=== PATIENT | male | born 1930 | race Caucasian/White ===

== ENCOUNTER 2020-07-27 15:58 | Inpatient (IN) | payer MEDICARE ==
[~2020-07-27 15:58] MED LIST: Iopamidol-370 76% 500 ML 1 ML ONE
[2020-07-27] MEDS ORDERED: Morphine 4 MG/ML VIAL ONE (18:03)
[2020-07-27] MEDS ORDERED: traMADol HCl 50 MG TAB PO PRN (18:26)
[2020-07-27] MEDS ORDERED: Ondansetron PF 4 MG/2 ML Vial IVP PRN (18:28)
[2020-07-27] MEDS ORDERED: Dextrose 50% Abboject 50 ML SYRINGE SLOW IVP PRN (18:28)
[2020-07-27] MEDS ORDERED: Insulin Regular 300 UNITS/3 ML VIAL SC PRN (18:28)
[2020-07-27] MEDS ORDERED: HumaLOG 300 UNITS/3 ML VIAL SC PRN (18:28)
[2020-07-27] MEDS ORDERED: Dextrose 5% in Water 1,000 ML IV PRN (18:28)
[2020-07-27] MEDS ORDERED: Ondansetron ODT 4 MG TAB PO PRN (18:28)
[2020-07-27] MEDS ORDERED: Sodium Chloride 0.9% 1,000 ML IV SCH (18:30)
[2020-07-27] MEDS ORDERED: Albuterol 200 PUFF (6.7GM INHALER) INH PRN (18:33)
[2020-07-27 19:21] LABS: #Eosinphils 0.1 thou/uL (0.0-0.7); #Lymphocytes 0.6 thou/uL (1.20-3.40); #Monocytes 0.7 thou/uL (0.11-0.59); #Neutrophils 14.6 thou/uL (1.40-6.50); %Basophils 0.1 % (0.0-1.0); %Eosinophils 0.4 % (0.0-10.0); %Lymphocytes 3.5 % (21.0-51.0); %Monocytes 4.4 % (0.0-10.0); %Neutrophils 91.5 % (42.0-75.0); Hemoglobin 14.6 g/dL (14.0-18.0); Mean Corpuscular HGB CONC 32.4 g/dL (32.0-36.0); Mean Corpuscular Hemoglobin 30.7 pg (27.0-31.0); Mean Corpuscular Volume 94.8 fL (78.0-98.0); Mean Platelet Volume 7.8 fL (7.4-10.4); Platelet Count 187 thou/uL (130-400); RBC Distribution Width 13.2 % (11.5-14.5); Red Blood Cell (RBC) Count 4.74 mill/uL (4.70-6.10)
[2020-07-27 20:02] LABS: Troponin I 0.359 ng/mL (< 0.028)
[2020-07-27 20:09] LABS: Albumin 3.4 g/dL (3.4-4.8)
[2020-07-27 20:10] LABS: Chloride 110 mmol/L (98-107); Potassium 4.8 mmol/L (3.5-5.1); Sodium 138 mmol/L (136-145)
[2020-07-27 20:12] LABS: Glucose 204 mg/dL (83-110); Protein, Total 6.1 g/dL (5.8-8.1)
[2020-07-27 20:13] LABS: Anion Gap 14 mmol/L (10-20); Bilirubin, Total 0.6 mg/dL (0.2-1.2); Carbon Dioxide 19 mmol/L (23-31)
[2020-07-27 20:14] LABS: Alkaline Phosphatase 118 U/L (40-110)
[2020-07-27] MEDS ORDERED: Aspirin Chewable 81 MG TAB ONE (20:14)
[2020-07-27] MEDS ORDERED: Aspirin 81 mg Enteric Coated Tablet ONE (20:14)
[2020-07-27 20:15] LABS: Calc. Creatinine Clearance 0 mL/min (70-130); Phosphorus 2.5 mg/dL (2.3-4.7)
[2020-07-27 20:16] LABS: BUN (Urea Nitrogen) 22 mg/dL (8.4-25.7)
[2020-07-27 20:17] LABS: AST (SGOT) 22 U/L (5-34); Bilirubin, Direct 0.3 mg/dL (0.1-0.3); Magnesium 1.7 mg/dL (1.6-2.6)
[2020-07-27 20:18] LABS: ALT (SGPT) 18 U/L (8-55)
[2020-07-27] MEDS ORDERED: Amlodipine 5 MG TAB PO SCH (20:45)
[2020-07-27] MEDS ORDERED: Heparin 25,000 units/D5W 500 ML IV SCH (20:45)
[2020-07-27] MEDS ORDERED: Ondansetron PF 4 MG/2 ML Vial ONE (20:58)
[2020-07-27] MEDS ORDERED: Famotidine 20 MG TAB PO SCH (21:00)
[2020-07-27] MEDS ORDERED: FLU VACC QS2020-21(65YR UP)/PF 240 MCG/0.7 ML SYRINGE IM ONE (21:00)
[2020-07-27] MEDS ORDERED: MEROPENEM 1 GM/50 ML 1 GM in Premix Bag 1 BAG IVPB SCH (22:00)
[2020-07-27 22:13] LABS: INR-International Normal Ratio 1.1; PTT 33.9 sec (22.9-36.1); Prothrombin Time 14.7 sec (12.0-14.7)
[2020-07-27] MEDS: Sodium Chloride 0.9% 1,000 ML IV SCH (23:41)
[2020-07-27] MEDS: Gabapentin 400 MG CAP PO SCH (23:42)
[2020-07-27] MEDS: HYDROcodone/Acetaminophen 10/325 mg Tablet PO PRN (23:44)
[2020-07-27] MEDS: Heparin 10,000 UNITS/ 10 ML VIAL SLOW IVP SCH (23:53)
[2020-07-28] MEDS: MEROPENEM 1 GM/50 ML 1 GM in Premix Bag 1 BAG IVPB SCH ×2 (01:14→08:57)
[2020-07-28 04:35] LABS: #Lymphocytes 0.8 thou/uL (1.20-3.40); #Neutrophils 12.1 thou/uL (1.40-6.50); %Basophils 0.1 % (0.0-1.0); %Eosinophils 0.1 % (0.0-10.0); %Lymphocytes 5.8 % (21.0-51.0); %Monocytes 6.9 % (0.0-10.0); Hemoglobin 13.5 g/dL (14.0-18.0); Mean Corpuscular HGB CONC 30.9 g/dL (32.0-36.0); Mean Corpuscular Hemoglobin 29.5 pg (27.0-31.0); Mean Corpuscular Volume 95.3 fL (78.0-98.0); Mean Platelet Volume 7.8 fL (7.4-10.4); Platelet Count 195 thou/uL (130-400); RBC Distribution Width 13.4 % (11.5-14.5); Red Blood Cell (RBC) Count 4.58 mill/uL (4.70-6.10)
[2020-07-28 04:40] LABS: INR-International Normal Ratio 1.3; PTT 54.1 sec (22.9-36.1); Prothrombin Time 16.1 sec (12.0-14.7)
[2020-07-28 05:03] LABS: Troponin I 0.513 ng/mL (< 0.028)
[2020-07-28 05:34] LABS: SARS-CoV-2 PCR by NAA Not Detected (NotDetected)
[2020-07-28 06:36] LABS: Bacteria/HPF None Seen HPF (None Seen); Bilirubin Negative (Negative); Blood, Urine 3+ (Negative); Clarity Turbid (Clear); Glucose, Urine (Dipstick) 100 mg/dL (Negative); Ketone, Urine 40 mg/dL (Negative); Leukocyte 25 Leu/uL (Negative); Nitrite Negative (Negative); Protein, Urine (Dipstick) 50 mg/dL (Neg-Trace); RBC/HPF Greater than 50 HPF (0-3); Squamous Epithelial None Seen HPF (0-3); Urobilinogen Normal mg/dL (Less than 2); pH, Urine 5.5 (5.0-9.0)
[2020-07-28 06:55] LABS: Specific Gravity, Urine 1.049 (1.002-1.036)
[2020-07-28 06:56] LABS: Urine Culture Reflex Yes Yes
[2020-07-28] MEDS: Sodium Chloride 0.9% 1,000 ML IV SCH ×3 (06:59→20:43)
[2020-07-28] MEDS: Mometasone 200 MCG/Formoterol 5 MCG 120 PUFF INHALER INH SCH ×2 (07:03→18:35)
[2020-07-28] MEDS: Heparin 10,000 UNITS/ 10 ML VIAL SLOW IVP SCH (07:27)
[2020-07-28] MEDS: Gabapentin 400 MG CAP PO SCH ×3 (08:54→20:42)
[2020-07-28] MEDS: Tamsulosin HCl 0.4 MG CAP PO SCH (08:55)
[2020-07-28] MEDS: Amlodipine 5 MG TAB PO SCH (08:55)
[2020-07-28] MEDS: Atorvastatin Calcium 10 MG TAB PO SCH (08:56)
[2020-07-28] MEDS: HYDROcodone/Acetaminophen 10/325 mg Tablet PO PRN (12:09)
[2020-07-28 14:20] LABS: PTT 229.4 sec (22.9-36.1)
[2020-07-28 16:49] LABS: PTT 151.6 sec (22.9-36.1)
[2020-07-28 17:09] LABS: Critical Call Chem Troponin I RESULT DECREASING
[2020-07-28 17:27] LABS: CKMB 3.9 ng/mL (0-6.6)
[2020-07-28] MEDS ORDERED: Insulin Regular 300 UNITS/3 ML VIAL SC PRN (18:42)
[2020-07-28] MEDS ORDERED: Dextrose 50% Abboject 50 ML SYRINGE SLOW IVP PRN (18:42)
[2020-07-28] MEDS ORDERED: Dextrose 5% in Water 1,000 ML IV PRN (18:42)
[2020-07-28 19:14] LABS: INR-International Normal Ratio 1.3; Prothrombin Time 16.3 sec (12.0-14.7)
[2020-07-28] MEDS ORDERED: Clindamycin/D5W 900 MG in Premix Bag 1 BAG IVPB SCH (19:30)
[2020-07-28] MEDS ORDERED: Famotidine 20 MG TAB PO SCH (21:00)
[2020-07-29] MEDS: HYDROcodone/Acetaminophen 10/325 mg Tablet PO PRN (04:25)
[2020-07-29 04:59] LABS: #Eosinphils 0.3 thou/uL (0.0-0.7); #Lymphocytes 0.8 thou/uL (1.20-3.40); #Neutrophils 7.2 thou/uL (1.40-6.50); %Basophils 0.3 % (0.0-1.0); %Eosinophils 3.7 % (0.0-10.0); %Lymphocytes 8.8 % (21.0-51.0); %Monocytes 10.3 % (0.0-10.0); %Neutrophils 76.9 % (42.0-75.0); Hemoglobin 12.2 g/dL (14.0-18.0); Mean Corpuscular HGB CONC 33.1 g/dL (32.0-36.0); Mean Corpuscular Hemoglobin 31.7 pg (27.0-31.0); Mean Corpuscular Volume 95.8 fL (78.0-98.0); Mean Platelet Volume 7.8 fL (7.4-10.4); Platelet Count 143 thou/uL (130-400); RBC Distribution Width 13.4 % (11.5-14.5); Red Blood Cell (RBC) Count 3.84 mill/uL (4.70-6.10); White Blood Cell (WBC) Count 9.4 thou/uL (4.8-10.8)
[2020-07-29 05:16] LABS: Anion Gap 13 mmol/L (10-20); BUN (Urea Nitrogen) 41 mg/dL (8.4-25.7); Calc. Creatinine Clearance 34 mL/min (70-130); Calcium 7.8 mg/dL (7.8-10.44); Carbon Dioxide 18 mmol/L (23-31); Chloride 110 mmol/L (98-107); Glucose 382 mg/dL (83-110); Magnesium 1.9 mg/dL (1.6-2.6); Phosphorus 2.7 mg/dL (2.3-4.7); Potassium 4.9 mmol/L (3.5-5.1); Sodium 136 mmol/L (136-145)
[2020-07-29] MEDS ORDERED: Insulin Regular 300 UNITS/3 ML VIAL SC SCH ×3 (05:45→19:45)
[2020-07-29] MEDS ORDERED: Lactated Ringer's 500 ML IV SCH ×3 (06:45→17:15)
[2020-07-29 06:59] LABS: INR-International Normal Ratio 1.3; Prothrombin Time 16.2 sec (12.0-14.7)
[2020-07-29 07:00] LABS: PTT 37.7 sec (22.9-36.1)
[2020-07-29 07:06] LABS: Glucose 351 mg/dL (83-110)
[2020-07-29] MEDS: Mometasone 200 MCG/Formoterol 5 MCG 120 PUFF INHALER INH SCH ×2 (07:13→18:33)
[2020-07-29] MEDS ORDERED: Fentanyl 100 MCG/2 ML VIAL ONE ×3 (07:29→13:22)
[2020-07-29] MEDS ORDERED: Tranexamic Acid 1,000 MG in Sodium Chloride 0.9% 250 ML 250 ML IVPB ONE (07:30)
[2020-07-29] MEDS ORDERED: Sodium Chloride 0.9% 100 ML ONE (07:49)
[2020-07-29] MEDS ORDERED: Sodium Chloride 0.9% 10 ML ONE (07:49)
[2020-07-29] MEDS ORDERED: Tranexamic Acid 1,000 MG/10 ML VIAL ONE ×2 (07:49→13:14)
[2020-07-29] MEDS ORDERED: Levofloxacin 500 mg/D5W 100 ml Premix Bag ONE (07:49)
[2020-07-29] MEDS ORDERED: Clindamycin/D5W 900 mg/50 ml Premix Bag ONE (07:49)
[2020-07-29] MEDS ORDERED: Albumin 5% 500 ML ONE (08:14)
[2020-07-29] MEDS ORDERED: Phenylephrine 10 MG/ML VIAL ONE (08:14)
[2020-07-29] MEDS ORDERED: methylPREDNISolone Sod Succ/PF 125 MG/2 ML VIAL IVP SCH (08:30)
[2020-07-29] MEDS ORDERED: methylPREDNISolone Sod Succ 40 MG VIAL IVP SCH (08:45)
[2020-07-29] MEDS ORDERED: Clindamycin/D5W 900 MG in Premix Bag 1 BAG IVPB SCH (09:00)
[2020-07-29 09:50] LABS: Glucose 202 mg/dL (83-110)
[2020-07-29] MEDS ORDERED: PROPOFOL 200 MG/20 ML VIAL ONE (10:48)
[2020-07-29] MEDS ORDERED: Lidocaine 1% PF 5 ML VIAL ONE (10:48)
[2020-07-29] MEDS ORDERED: Rocuronium Bromide 10 MG/ML (10ML VIAL) ONE (10:48)
[2020-07-29] MEDS ORDERED: PHENYLEPHRINE-NS 100 MCG/ML 10 ML SYRINGE ONE (10:48)
[2020-07-29] MEDS ORDERED: Dexamethasone 20 MG/5 ML VIAL ONE (10:48)
[2020-07-29] MEDS ORDERED: ePHEDrine Sulfate 50 MG/10 ML VIAL ONE (10:48)
[2020-07-29] MEDS ORDERED: SUGAMMADEX SODIUM 200 MG/2 ML VIAL ONE (12:14)
[2020-07-29] MEDS ORDERED: Ondansetron HCl/PF 4 MG/2 ML Vial IVP PRN (12:57)
[2020-07-29] MEDS ORDERED: Promethazine HCl 25 MG/ML VIAL SLOW IVP PRN (12:57)
[2020-07-29] MEDS ORDERED: Promethazine HCl 25 MG/ML VIAL IM PRN (12:57)
[2020-07-29 13:34] LABS: Glucose 200 mg/dL (83-110)
[2020-07-29] MEDS: methylPREDNISolone Sod Succ 40 MG VIAL IVP SCH ×2 (13:49→18:07)
[2020-07-29] MEDS: Gabapentin 400 MG CAP PO SCH ×3 (15:14→20:35)
[2020-07-29] MEDS: Tamsulosin HCl 0.4 MG CAP PO SCH (15:14)
[2020-07-29] MEDS: Atorvastatin Calcium 10 MG TAB PO SCH (15:14)
[2020-07-29] MEDS: Amlodipine 5 MG TAB PO SCH (15:15)
[2020-07-29] MEDS: Sodium Chloride 0.9% 1,000 ML IV SCH (15:47)
[2020-07-29] MEDS: Clindamycin/D5W 900 MG in Premix Bag 1 BAG IVPB SCH (15:47)
[2020-07-29] MEDS: Insulin Regular 300 UNITS/3 ML VIAL SC PRN ×2 (16:05→20:36)
[2020-07-29] MEDS ORDERED: Lactated Ringer's 1,000 ML IV SCH ×2 (17:30→18:16)
[2020-07-29 17:43] LABS: Actual Bicarbonate (HCO3a) 19.5 mEq/L (22-28); Base Excess (BEa) -6.2 mEq/L (-2.0 to +3.0); CO2 Tension 39.4 mmHg (35.0-45.0); Calcium, Ionized (arterial) 1.12 mmol/L (1.12-1.30); Carboxyhemoglobin (COHb) 0.5 gm% (0.0-3.0); Potassium - ABG Lab 5.04 mmol/L (3.70-5.30); pH, Arterial 7.31 (7.35-7.45)
[2020-07-29 17:44] LABS: O2 Tension (PaO2), arterial 55.3 mmHg (> 60.0); Puncture Site RRA
[2020-07-29 17:47] LABS: Glucose 260 mg/dL (83-110)
[2020-07-29] MEDS ORDERED: Furosemide 20 MG/2 ML VIAL SLOW IVP SCH (18:15)
[2020-07-29] MEDS ORDERED: Sodium Bicarb 50 MEQ/50 ML Abboject 8.4% SYRINGE IVP SCH (18:15)
[2020-07-29] MEDS ORDERED: Insulin Regular 300 UNITS/3 ML VIAL IVP SCH ×3 (18:30→19:30)
[2020-07-29] MEDS: Lactated Ringer's 1,000 ML IV SCH ×2 (19:40)
[2020-07-29] MEDS ORDERED: Lantus 1000 UNITS/10 ML VIAL SC STA (20:56)
[2020-07-29] MEDS ORDERED: Lantus 1000 UNITS/10 ML VIAL SC SCH (21:00)
[2020-07-30] MEDS: Clindamycin/D5W 900 MG in Premix Bag 1 BAG IVPB SCH (00:09)
[2020-07-30] MEDS: methylPREDNISolone Sod Succ 40 MG VIAL IVP SCH (00:10)
[2020-07-30] MEDS: Insulin Regular 300 UNITS/3 ML VIAL SC PRN ×4 (00:11→17:27)
[2020-07-30 03:43] LABS: #Lymphocytes 0.5 thou/uL (1.20-3.40); #Monocytes 0.5 thou/uL (0.11-0.59); %Basophils 0.1 % (0.0-1.0); %Eosinophils 0.1 % (0.0-10.0); %Lymphocytes 4.8 % (21.0-51.0); %Monocytes 5.4 % (0.0-10.0); %Neutrophils 89.7 % (42.0-75.0); Hemoglobin 10.4 g/dL (14.0-18.0); Mean Corpuscular HGB CONC 32.6 g/dL (32.0-36.0); Mean Corpuscular Hemoglobin 30.8 pg (27.0-31.0); Mean Corpuscular Volume 94.5 fL (78.0-98.0); Mean Platelet Volume 7.7 fL (7.4-10.4); Platelet Count 122 thou/uL (130-400); RBC Distribution Width 13.3 % (11.5-14.5); Red Blood Cell (RBC) Count 3.38 mill/uL (4.70-6.10); White Blood Cell (WBC) Count 10.1 thou/uL (4.8-10.8)
[2020-07-30 03:53] LABS: Phosphorus 2.3 mg/dL (2.3-4.7)
[2020-07-30 04:05] LABS: Anion Gap 12 mmol/L (10-20); BUN (Urea Nitrogen) 38 mg/dL (8.4-25.7); Calc. Creatinine Clearance 43 mL/min (70-130); Calcium 7.9 mg/dL (7.8-10.44); Carbon Dioxide 20 mmol/L (23-31); Chloride 110 mmol/L (98-107); Glucose 279 mg/dL (83-110); Magnesium 1.8 mg/dL (1.6-2.6); Potassium 4.4 mmol/L (3.5-5.1); Sodium 138 mmol/L (136-145)
[2020-07-30 07:40] VITALS: BMI 27.9
[2020-07-30 07:44] LABS: Bacteria/HPF None Seen HPF (None Seen); Bilirubin Negative (Negative); Blood, Urine 2+ (Negative); Clarity Clear (Clear); Glucose, Urine (Dipstick) 100 mg/dL (Negative); Ketone, Urine Negative (Negative); Leukocyte 25 Leu/uL (Negative); Nitrite Negative (Negative); Protein, Urine (Dipstick) 20 mg/dL (Neg-Trace); Specific Gravity, Urine 1.024 (1.002-1.036); Squamous Epithelial None Seen HPF (0-3); Urobilinogen Normal mg/dL (Less than 2)
[2020-07-30 07:46] LABS: Urine Culture Reflex Yes Yes
[2020-07-30] MEDS: Mometasone 200 MCG/Formoterol 5 MCG 120 PUFF INHALER INH SCH ×2 (08:21→18:45)
[2020-07-30] MEDS: Tamsulosin HCl 0.4 MG CAP PO SCH (08:48)
[2020-07-30] MEDS: Gabapentin 400 MG CAP PO SCH ×3 (08:48→20:04)
[2020-07-30] MEDS ORDERED: Lantus 1000 UNITS/10 ML VIAL SC SCH ×6 (09:00→21:00)
[2020-07-30] MEDS ORDERED: Furosemide 20 MG TAB PO SCH (09:00)
[2020-07-30] MEDS: Atorvastatin Calcium 10 MG TAB PO SCH (10:17)
[2020-07-30] MEDS: Lactated Ringer's 1,000 ML IV SCH (10:18)
[2020-07-30] MEDS ORDERED: Insulin Regular 300 UNITS/3 ML VIAL SC SCH (16:00)
[2020-07-30] MEDS ORDERED: HumaLOG 300 UNITS/3 ML VIAL SC SCH (17:00)
[2020-07-30] MEDS: HumaLOG 300 UNITS/3 ML VIAL SC SCH (17:26)
[2020-07-30] MEDS: Aspirin 81 mg Enteric Coated Tablet PO SCH (20:04)
[2020-07-31] MEDS: Lactated Ringer's 1,000 ML IV SCH (04:54)
[2020-07-31 06:39] LABS: #Lymphocytes 0.9 thou/uL (1.20-3.40); #Monocytes 1.5 thou/uL (0.11-0.59); #Neutrophils 12.2 thou/uL (1.40-6.50); %Basophils 0.2 % (0.0-1.0); %Eosinophils 0.1 % (0.0-10.0); %Monocytes 10.1 % (0.0-10.0); %Neutrophils 83.5 % (42.0-75.0); Hemoglobin 10.7 g/dL (14.0-18.0); Mean Corpuscular HGB CONC 32.4 g/dL (32.0-36.0); Mean Corpuscular Hemoglobin 30.5 pg (27.0-31.0); Mean Corpuscular Volume 94.4 fL (78.0-98.0); Mean Platelet Volume 7.7 fL (7.4-10.4); Platelet Count 161 thou/uL (130-400); RBC Distribution Width 13.4 % (11.5-14.5); Red Blood Cell (RBC) Count 3.51 mill/uL (4.70-6.10); White Blood Cell (WBC) Count 14.6 thou/uL (4.8-10.8)
[2020-07-31 06:57] LABS: Anion Gap 10 mmol/L (10-20); BUN (Urea Nitrogen) 29 mg/dL (8.4-25.7); Calc. Creatinine Clearance 52 mL/min (70-130); Calcium 8.1 mg/dL (7.8-10.44); Carbon Dioxide 26 mmol/L (23-31); Chloride 110 mmol/L (98-107); Glucose 92 mg/dL (83-110); Sodium 142 mmol/L (136-145)
[2020-07-31] MEDS: Mometasone 200 MCG/Formoterol 5 MCG 120 PUFF INHALER INH SCH ×2 (07:14→18:45)
[2020-07-31] MEDS: HumaLOG 300 UNITS/3 ML VIAL SC SCH (07:57)
[2020-07-31] MEDS: Aspirin 81 mg Enteric Coated Tablet PO SCH (08:21)
[2020-07-31] MEDS: Atorvastatin Calcium 10 MG TAB PO SCH (08:21)
[2020-07-31] MEDS: Tamsulosin HCl 0.4 MG CAP PO SCH (08:21)
[2020-07-31] MEDS: Gabapentin 400 MG CAP PO SCH ×2 (08:21→17:18)
[2020-07-31] MEDS ORDERED: Furosemide 20 MG TAB PO SCH (13:15)
[2020-07-31] MEDS ORDERED: Furosemide 20 MG/2 ML VIAL SLOW IVP SCH (13:45)
[2020-07-31] MEDS: traMADol HCl 50 MG TAB PO SCH ×2 (18:17→23:49)
[2020-07-31] MEDS: Acetaminophen 325 MG TAB PO SCH ×2 (18:17→23:47)
[2020-07-31] MEDS ORDERED: Enoxaparin Sodium 40 MG/0.4 ML SYRINGE SC SCH (21:00)
[2020-07-31] MEDS ORDERED: Lantus 1000 UNITS/10 ML VIAL SC SCH (21:00)
[2020-07-31] MEDS: Insulin Regular 300 UNITS/3 ML VIAL SC PRN (23:45)
[2020-08-01] MEDS: Acetaminophen 325 MG TAB PO SCH ×2 (05:40→12:03)
[2020-08-01] MEDS: traMADol HCl 50 MG TAB PO SCH ×2 (05:41→12:03)
[2020-08-01] MEDS: Tamsulosin HCl 0.4 MG CAP PO SCH (07:58)
[2020-08-01] MEDS: Atorvastatin Calcium 10 MG TAB PO SCH (07:58)
[2020-08-01] MEDS: Mometasone 200 MCG/Formoterol 5 MCG 120 PUFF INHALER INH SCH (08:21)
[2020-08-01] MEDS ORDERED: Furosemide 20 MG TAB PO SCH (09:00)
[2020-08-01 09:36] LABS: Anion Gap 11 mmol/L (10-20); BUN (Urea Nitrogen) 23 mg/dL (8.4-25.7); Calc. Creatinine Clearance 62 mL/min (70-130); Carbon Dioxide 29 mmol/L (23-31); Chloride 105 mmol/L (98-107); Glucose 97 mg/dL (83-110); Magnesium 1.9 mg/dL (1.6-2.6); Phosphorus 2.5 mg/dL (2.3-4.7); Potassium 3.5 mmol/L (3.5-5.1); Sodium 141 mmol/L (136-145)
[2020-08-01 11:46] VITALS: BP 145/61; TEMP 97.8
== END 2020-08-01 14:00 | disposition swing bed (61) | DRG 521 ==
LOC: ERS 15:58 → 2NO 20:57 → SURG A 07-29 11:39 → 2NO 07-29 13:26 → CCU 07-29 18:40 → SURG B 07-30 13:01
PROVIDERS: ADMIT Specialist; ATTEND Specialist
PROC: 0SRS0J9 Replacement of Left Hip Joint, Femoral Surface with Synthetic Substitute, Cemented, Open Approach (ICD-10-PCS; principal; 2020-07-29)
PROC: 5A09357 Assistance with Respiratory Ventilation, Less than 24 Consecutive Hours, Continuous Positive Airway Pressure (ICD-10-PCS; 2020-07-29)
DX: S72.012A Unspecified intracapsular fracture of left femur, initial encounter for closed fracture (principal); I21.4 Non-ST elevation (NSTEMI) myocardial infarction; E87.2 Acidosis; N17.9 Acute kidney failure, unspecified; J96.11 Chronic respiratory failure with hypoxia; J44.1 Chronic obstructive pulmonary disease with (acute) exacerbation; I50.30 Unspecified diastolic (congestive) heart failure; Z20.822 Contact with and (suspected) exposure to COVID-19; W18.30XA Fall on same level, unspecified, initial encounter; K21.9 Gastro-esophageal reflux disease without esophagitis; E78.5 Hyperlipidemia, unspecified; E78.00 Pure hypercholesterolemia, unspecified; J92.0 Pleural plaque with presence of asbestos; E11.65 Type 2 diabetes mellitus with hyperglycemia; I11.0 Hypertensive heart disease with heart failure; R79.89 Other specified abnormal findings of blood chemistry; Z79.899 Other long term (current) drug therapy; Z79.82 Long term (current) use of aspirin; Z79.4 Long term (current) use of insulin; Z79.51 Long term (current) use of inhaled steroids; Z90.49 Acquired absence of other specified parts of digestive tract; Z98.52 Vasectomy status; Z87.891 Personal history of nicotine dependence; Y92.009 Unspecified place in unspecified non-institutional (private) residence as the place of occurrence of the external cause; Z88.0 Allergy status to penicillin; Z88.2 Allergy status to sulfonamides
CPT/HCPCS: 36415; 36416; 36600; 71045; 71275; 72170; 80048; 81001; 82010; 82533; 82550; 82553; 82805; 83036; 83605; 83735; 83880; 84100; 84146; 84484; 85025; 85610; 85730; 86850; 86900; 86901; 87086; 87635; 93005; 93010; 93306; 93880; 94640; 94660; 96374; 96375; G0390; J1100; J1644; J1650; J1815; J1940; J1956; J2185; J2270; J2370; J2405; J2704; J2920; J3010; J3490; J7620; P9045; Q9967; U0003; U0005

== ENCOUNTER 2021-01-29 15:12 | Outpatient (CLI) | payer MEDICARE ==
[2021-01-29 16:09] LABS: Bilirubin Neg (Negative); Blood, Urine Negative (Negative); Clarity Clear (Clear); Glucose, Urine (Dipstick) 100 mg/dL (Negative); Ketone, Urine Negative (Negative); Leukocyte Negative (Negative); Nitrite Negative (Negative); Protein, Urine (Dipstick) Negative (Neg-Trace); Specific Gravity, Urine 1.005 (1.002-1.036); Urobilinogen Normal mg/dL (Less than 2)
[2021-01-29 16:25] LABS: Hemoglobin 13.5 g/dL (13.5-17.5); Mean Corpuscular HGB CONC 31.1 g/dL (32.0-36.0); Mean Corpuscular Hemoglobin 28.4 pg (27.0-33.0); Mean Corpuscular Volume 91.2 fl (81.2-95.1); Mean Platelet Volume 9.3 fl (7.4-10.4); Platelet Count 213 10x3/uL (150-450); RBC Distribution Width 17.6 % (11.5-14.5); Red Blood Cell (RBC) Count 4.76 10x6/uL (4.32-5.72); White Blood Cell (WBC) Count 7.2 10x3/uL (3.5-10.5)
[2021-01-29 16:26] LABS: PTT 29.3 sec (22.0-33.0); Prothrombin Time 11.1 sec (9.5-12.1)
[2021-01-29 16:27] LABS: Bacteria/HPF None Seen HPF (None Seen); RBC/HPF None Seen HPF (0-3); Squamous Epithelial None Seen HPF (0-3); WBC/HPF None Seen HPF (0-3)
[2021-01-29 16:33] LABS: Anion Gap 14 mmol/L (10-20); BUN (Urea Nitrogen) 15 mg/dL (8.4-25.7); Calc. Creatinine Clearance 0 mL/min (70-130); Calcium 8.8 mg/dL (7.8-10.44); Carbon Dioxide 25 mmol/L (23-31); Chloride 105 mmol/L (98-107); Glucose 214 mg/dL (83-110); Potassium 4.1 mmol/L (3.5-5.1); Sodium 140 mmol/L (136-145)
[2021-01-30 00:58] LABS: SARS-CoV-2 PCR by NAA Not Detected (NotDetected)
== END 2021-01-29 15:13 | disposition home or self-care (01) ==
LOC: LABBT 15:12
PROVIDERS: ATTEND Urology
DX: Z01.818 Encounter for other preprocedural examination (principal); N40.1 Benign prostatic hyperplasia with lower urinary tract symptoms; Z20.822 Contact with and (suspected) exposure to COVID-19
CPT/HCPCS: 80048; 81001; 85027; 85610; 85730; 87086; 93005; U0003; U0005; 93010

== ENCOUNTER 2021-01-31 05:54 | Day surgery (SDC) | payer MEDICARE ==
[2021-01-30 13:51] VITALS: BMI 23.6
[2021-01-31] MEDS ORDERED: Levofloxacin 500 mg/D5W 100 ml Premix Bag ONE (06:23)
[2021-01-31] MEDS ORDERED: Fentanyl 100 MCG/2 ML VIAL ONE (06:41)
[2021-01-31] MEDS ORDERED: PROPOFOL 200 MG/20 ML VIAL ONE (07:05)
[2021-01-31] MEDS ORDERED: Ondansetron PF 4 MG/2 ML Vial ONE (07:05)
[2021-01-31] MEDS ORDERED: ePHEDrine 50 MG/ML VIAL ONE (07:05)
[2021-01-31] MEDS ORDERED: Phenazopyridine HCl 100 MG TAB ONE (08:26)
[2021-01-31] MEDS ORDERED: Oxybutynin 5 MG TAB ONE (08:26)
== END 2021-01-31 09:45 | disposition home or self-care (01) ==
LOC: SDC 05:54
PROVIDERS: ATTEND Urology
PROC: 0T7D8DZ Dilation of Urethra with Intraluminal Device, Via Natural or Artificial Opening Endoscopic (ICD-10-PCS; principal; 2021-01-31)
DX: N40.1 Benign prostatic hyperplasia with lower urinary tract symptoms (principal); R33.8 Other retention of urine; N13.8 Other obstructive and reflux uropathy; N32.89 Other specified disorders of bladder; Z79.4 Long term (current) use of insulin; Z79.82 Long term (current) use of aspirin; Z79.899 Other long term (current) drug therapy; Z88.0 Allergy status to penicillin; Z88.2 Allergy status to sulfonamides
CPT/HCPCS: 82962; C9740; L8699; 36416; J1956; J2405; J2704; J3010; J3490